=== PATIENT | male | born 1990 | race Two or more races ===

== ENCOUNTER 2017-02-05 00:05 | Emergency (ER) | payer OTHER ==
[2017-02-05 00:14] VITALS: BP 124/74; PULSE 77; TEMP 98.6; BMI 27.3
--- NOTE | 2017-02-05 00:42 | PDOC ---
History of Present Illness - General Chief Complaint: Pain Stated Complaint: RUPTURED PYLONIDAL CYST TO THE BUTTOCKS Time Seen by Provider: 02/05/17 00:20 History Source: Patient Exam Limitations: No Limitations - History of Present Illness Initial Comments: 02/05/17 00:45 26y M no pmhx presents with a pilonidal abscess for the past 4-5 days, started draining spontaneously and the pts girl friend put pressure on it prior to arrival and drained a large amount of pus. The pt notes the pain is improved however it still continues ooze pus occasionally. The pt alexander any fever/chills , rectal pain, abd pain, n/v. No prior history of pilonidal cyst. Pt saw PMD who referred him to surgeon, who he saw on wednesday, but it wasnt that bad and they elected for a supportive care. however it worsend which prompted him to come in tonight. Past History - Past Medical History Allergies/Adverse Reactions: Allergies Allergy/AdvReac Type Severity Reaction Status Date / Time No Known Allergies Allergy Verified 02/05/17 00:07 Home Medications: Ambulatory Orders Cephalexin Monohydrate [Keflex -] 500 mg PO Q6H #20 capsule 02/05/17 Loratadine [Claritin] 10 mg PO PRN PRN 02/05/17 Asthma: Yes - Immunization History Immunization Up to Date: Yes - Psycho/Social/Smoking Cessation Hx Anxiety: No Suicidal Ideation: No Smoking Status: No Smoking History: Never smoked Number of Cigarettes Smoked Daily: 0 Information on smoking cessation initiated: No Hx Alcohol Use: No Drug/Substance Use Hx: No Substance Use Type: None Review of Systems - Review of Systems Able to Perform ROS?: Yes Comments:: 02/05/17 00:46 Constitutional - no reported Fever, Chills, HEENT: no reported vision changes, sore throat Abd/GI: +lower back pain no reported abd pain, nausea, vomiting, blood per rectum, melena, diarrhea Musculskelatal - no reported back pain, joint swelling *Physical Exam - Vital Signs Last Vital Signs Temp Pulse Resp BP Pulse Ox 98.6 F 77 18 124/74 97 02/05/17 00:09 02/05/17 00:09 02/05/17 00:09 02/05/17 00:09 02/05/17 00:09 - Physical Exam Comments: 02/05/17 00:48 GENERAL: The patient is awake, alert, and fully oriented, Nontoxic - in no acute distress. ABDOMEN: Soft, nontender, normoactive bowel sounds. No guarding, no rebound. No CVA tenderness RECTAL: No rectal tenderness, +pilondial cyst midline and superior L interglutial with mild surrounding erythema/induration, non fluctuant, small amount of bloody purulent discharge expressed Procedures - Consent Consent obtained: Verbal - Incision and Drainage I&D Site: Left: Perirectal (pilonidla cyst) Anesthesia: 1% Lidocaine Volume(ml): 2 Blade Size: 11 Attempts: 1 Plain Packing: No Complications: none Dressing: Yes (gauze) Medical Decision Making - Medical Decision Making 02/05/17 00:51 +drainge tract present, however widened it to improve drainage. mild surrounding celluitis, will give abx pt has a surgeon at [facility] - will have him fu with surgery. no rectal pain/tenderness/fluctuance on exam to suggest perirectal/perianal absess I discussed the physical exam findings, ancillary test results and final diagnoses with the patient. I answered all of the patient's questions. The patient was satisfied with the care received and felt comfortable with the discharge plan and treatment plan. The patient will call their primary care physician within 24 hours to arrange follow-up and will return to the Emergency Department with any new, persistent or worsening symptoms. *DC/Admit/Observation/Transfer Diagnosis at time of Disposition: Pilonidal abscess - Discharge Dispostion Condition at time of disposition: Good Admit: No - Prescriptions Prescriptions: Cephalexin Monohydrate [Keflex -] 500 mg PO Q6H #20 capsule - Referrals Referrals: Jens Arreola [Non Staff, Medical] - - Patient Instructions Printed Discharge Instructions: Pilonidal Cyst, DI for Cellulitis -- Adult Additional Instructions: Keep the area clean and dry. If there is worsening pain, discharge, swelling, return here or see your surgeon. If you have any fever/chills, rectal pain, or other concerns, return for reevaluation. Take the antibiotics as prescribed. Follow up with a surgeon for further evaluation of your pilonidal cyst Print Language: AMHARIC
== END 2017-02-05 00:48 | disposition home or self-care (01) ==
LOC: FER 00:05
PROC: 0H98XZZ Drainage of Buttock Skin, External Approach (ICD-10-PCS; principal; 2017-02-05)
DX: L05.01 Pilonidal cyst with abscess (principal)
CPT/HCPCS: 99281-25